=== PATIENT | female | born 1975 | race Caucasian/White ===

== ENCOUNTER 2023-08-31 10:28 | Day surgery (SDC) | payer BC ==
[2023-08-31 11:34] LABS: HCG URINE TEST NEGATIVE (NEGATIVE)
[2023-08-31] MEDS ORDERED: DIPRIVAN 200 MG/20 ML IV ONE (12:30)
[2023-08-31] MEDS ORDERED: MORPHINE SULFATE 2 MG INJ ONE (12:47)
[2023-08-31] MEDS ORDERED: Lactated Ringers 1,000 ML IV ONE (12:56)
--- NOTE | 2023-08-31 13:25 | XRAY ---
Indication: Right L4-S1 transforaminal PAVEL. Intraoperative fluoroscopy provided for 21 seconds. 4 digital spot image submitted for interpretation demonstrate posterior needle tips projecting over the expected right L4 and L5 nerve roots. Small amount of contrast injected for needle tip placement. Correlate with intraoperative findings/report.
--- NOTE | 2023-08-31 14:13 | XRAY ---
21 seconds of fluoroscopy was used in surgery for a right L4-S1 transforaminal PAVEL.
== END 2023-08-31 13:07 | disposition home or self-care (01) ==
LOC: SDC-PAIN 10:28
PROVIDERS: ATTEND Psychiatry & Neurology Pain Medicine
DX: M54.16 Radiculopathy, lumbar region (principal)
CPT/HCPCS: 64483; 64484; 72100; 77003; 81025; J2270; J2704; Q9966

== ENCOUNTER 2023-10-06 11:13 | Day surgery (SDC) | payer BC, SELFPAY ==
[2023-10-06] MEDS ORDERED: Xylocaine-Mpf 2% 5 Ml Vial IJ ONE (11:14)
[2023-10-06] MEDS ORDERED: Depo-Medrol 40 MG/ML IM ONE (11:14)
[2023-10-06 11:32] LABS: HCG URINE TEST NEGATIVE (NEGATIVE)
[2023-10-06] MEDS ORDERED: DIPRIVAN 200 MG/20 ML IV ONE (12:52)
[2023-10-06] MEDS ORDERED: Lactated Ringers 1,000 ML IV ONE (13:24)
--- NOTE | 2023-10-06 13:49 | XRAY ---
Indication: Bilateral L4-S1 MBB. Intraoperative fluoroscopy provided for 7 seconds. Single digital spot image submitted for interpretation demonstrates posterior needle tips projecting over the expected left and right L4-S1 nerve roots. Correlate with intraoperative findings/report.
--- NOTE | 2023-10-06 13:56 | XRAY ---
7 seconds of fluoroscopy was used in surgery for a bilateral L4-S1 MBB.
== END 2023-10-06 13:37 | disposition home or self-care (01) ==
LOC: SDC-PAIN 11:13
PROVIDERS: ATTEND Psychiatry & Neurology Pain Medicine
DX: M47.816 Spondylosis without myelopathy or radiculopathy, lumbar region (principal)
CPT/HCPCS: 64493; 64494; 72020; 77002; 81025; J2704

== ENCOUNTER 2023-11-16 10:19 | Day surgery (SDC) | payer BC ==
[2023-11-16] MEDS ORDERED: Depo-Medrol 40 MG/ML IM ONE (10:20)
[2023-11-16] MEDS ORDERED: BUPIVACAINE 0.5% VIAL IJ ONE (10:20)
[2023-11-16 10:43] LABS: HCG URINE TEST NEGATIVE (NEGATIVE)
[2023-11-16] MEDS ORDERED: DIPRIVAN 200 MG/20 ML IV ONE (11:58)
[2023-11-16] MEDS ORDERED: Lactated Ringers 1,000 ML IV ONE (13:48)
--- NOTE | 2023-11-16 19:53 | XRAY ---
Indication: Bilateral L4-S1 MBB Intraoperative fluoroscopy provided for 7 seconds. Single digital spot image submitted for interpretation demonstrates posterior needle tips projecting over the expected left and right L4-S1 nerve roots. Correlate with intraoperative findings/report.
--- NOTE | 2023-11-16 20:20 | XRAY ---
7 seconds of fluoroscopy was used in surgery for a bilateral L4-S1 MBB.
== END 2023-11-16 12:26 ==
LOC: SDC-PAIN 10:19
PROVIDERS: ATTEND Psychiatry & Neurology Pain Medicine
DX: M47.816 Spondylosis without myelopathy or radiculopathy, lumbar region (principal)
CPT/HCPCS: 64493; 64494; 72020; 77002; 81025; J2704